=== PATIENT | male | born 1990 | race Caucasian/White ===

== ENCOUNTER 2019-09-28 15:13 | Emergency (ER) | payer MEDICAID ==
[~2019-09-28] VITALS: Ht 167.6 cm; Wt 68.0 kg
[2019-09-28 15:15] VITALS: BP 135/84
== END 2019-09-28 16:39 | disposition home or self-care (01) ==
LOC: ER 15:14
DX: K02.9 Dental caries, unspecified (principal); F17.200 Nicotine dependence, unspecified, uncomplicated; Z88.0 Allergy status to penicillin
CPT/HCPCS: 99281

== ENCOUNTER 2020-05-15 09:19 | Emergency (ER) | payer MEDICAID, OTHER ==
[~2020-05-15] VITALS: Ht 167.6 cm; Wt 70.5 kg
[2020-05-15 09:26] VITALS: BP 127/85
--- NOTE | 2020-05-15 09:52 | NUR ---
ATTEMPTED TO CALL [facility] FOR CONSULT WITH DR TORRES. HIS MAIL BOX IS FULL. CALLED CB SPOKE TO MAREK THE CN SHE WILL ATTEMPT TO GET IN TOUCH WITH HIM OTHERWISE SHE WILL ASK HIM TO CALL ER WHEN HE ARRIVES UPSTAIRS.
== END 2020-05-15 10:29 | disposition home or self-care (01) ==
LOC: ER 09:20
DX: R44.0 Auditory hallucinations (principal); Z88.0 Allergy status to penicillin
CPT/HCPCS: 99281

== ENCOUNTER 2020-06-10 10:19 | Emergency (ER) | payer MEDICAID ==
[~2020-06-10] VITALS: Ht 167.6 cm; Wt 72.5 kg
[2020-06-10 10:36] VITALS: BP 134/84
[2020-06-10] MEDS ORDERED: HYDR50CA PO (12:29)
[2020-06-10] MEDS ORDERED: hydrOXYzine 25 MG tablet PO ONE (12:30)
--- NOTE | 2020-06-10 12:57 | NUR ---
Pt left before receiving the atarax and his discharge papers. Left message on pt's voicemail regarding his Rx and d/c papers.
== END 2020-06-10 12:59 | disposition home or self-care (01) ==
LOC: ER 10:20
DX: F41.9 Anxiety disorder, unspecified (principal); F31.9 Bipolar disorder, unspecified; R44.0 Auditory hallucinations; Z88.0 Allergy status to penicillin
CPT/HCPCS: 99283

== ENCOUNTER 2020-10-15 00:24 | Emergency (ER) | payer MEDICAID ==
[~2020-10-15] VITALS: Ht 167.6 cm; Wt 75.0 kg
[~2020-10-15 00:24] MED LIST: HYDR50CA PO
[2020-10-15 00:33] VITALS: BP 139/98
--- NOTE | 2020-10-15 00:42 | NUR ---
He is beligerant.
--- NOTE | 2020-10-15 00:57 | NUR ---
at BS doing FAST exam. Pt cooperative with .
--- NOTE | 2020-10-15 00:58 | NUR ---
FAST is negative.
== END 2020-10-15 01:44 ==
LOC: ER 00:24
DX: F10.129 Alcohol abuse with intoxication, unspecified (principal); F31.9 Bipolar disorder, unspecified; Z88.0 Allergy status to penicillin; Z79.899 Other long term (current) drug therapy; Y90.9 Presence of alcohol in blood, level not specified; Z02.89 Encounter for other administrative examinations
CPT/HCPCS: 99283

== ENCOUNTER 2020-10-30 22:42 | Emergency (ER) | payer MEDICAID | END 2020-10-30 22:57 | disposition left against medical advice (07) | LOC: ER 22:43 | DX: R06.02 Shortness of breath (principal); Z53.21 Procedure and treatment not carried out due to patient leaving prior to being seen by health care provider ==

== ENCOUNTER 2021-05-15 10:00 | Emergency (ER) | payer MEDICAID ==
[~2021-05-15] VITALS: Ht 167.6 cm; Wt 70.5 kg
[2021-05-15 11:02] VITALS: BP 115/80
[2021-05-15] MEDS ORDERED: SULF1TAB49 PO (12:51)
== END 2021-05-15 13:08 | disposition home or self-care (01) ==
LOC: ER 10:00
DX: L02.416 Cutaneous abscess of left lower limb (principal); F32.9 Major depressive disorder, single episode, unspecified; Z88.0 Allergy status to penicillin
CPT/HCPCS: 99283

== ENCOUNTER 2021-05-23 05:59 | Emergency (ER) | payer MEDICAID ==
[~2021-05-23] VITALS: Ht 172.7 cm; Wt 70.5 kg
[~2021-05-23 05:59] MED LIST changes: +SULF1TAB49 PO
--- NOTE | 2021-05-23 06:16 | NUR ---
BLOOD GLUCOSE 473 BY EMS
[2021-05-23] MEDS ORDERED: NALO4SPR BOTHNARES (10:05)
[2021-05-23 10:23] VITALS: BP 101/57
== END 2021-05-23 10:27 | disposition home or self-care (01) ==
LOC: ER 05:59
DX: T40.2X1A Poisoning by other opioids, accidental (unintentional), initial encounter (principal); Z88.0 Allergy status to penicillin; Y92.89 Other specified places as the place of occurrence of the external cause
CPT/HCPCS: 99285

== ENCOUNTER 2021-10-22 01:14 | Emergency (ER) | payer MEDICAID ==
[~2021-10-22] VITALS: Ht 167.6 cm; Wt 70.9 kg
[~2021-10-22 01:14] MED LIST changes: +NALO4SPR BOTHNARES; -SULF1TAB49 PO
[2021-10-22] MEDS ORDERED: ondansetron/PF 4mg/2ml inj IV ONE (01:30)
[2021-10-22] MEDS ORDERED: normal saline 1000ML IV soln IVB ONE (01:30)
[2021-10-22 02:19] LABS: ALANINE AMINOTRANSFERASE 45 U/L (12-78); ALBUMIN 3.7 G/DL (3.4-5.0); ALBUMIN/GLOBULIN RATIO 1.1 (1.1-1.5); ALKALINE PHOSPHATASE 84 IU/L (46-116); ANION GAP 9 (8-16); ASPARTATE AMINO TRANSFERASE 40 U/L (10-37); BASOPHILS % (AUTO) 0.5 % (0-1); BILIRUBIN,TOTAL 0.2 MG/DL (0.1-1.0); BLOOD UREA NITROGEN 12 MG/DL (7-18); BUN/CREATININE RATIO 11.5 (5.4-32.0); CALCIUM 8.4 MG/DL (8.5-10.1); CHLORIDE 104 MMOL/L (99-107); CREATININE 1.04 MG/DL (0.60-1.10); EOSINOPHILS # (AUTO) 0.3 X10'3 (0-0.9); ETHANOL 0.119 GM/DL (0.0-0.010); GLUCOSE 100 MG/DL (70-104); HEMATOCRIT 44.7 % (42.0-52.0); HEMOGLOBIN 15.4 g/dl (14.0-17.9); LYMPHOCYTES # (AUTO) 2.5 X10'3 (1.1-4.8); LYMPHOCYTES % (AUTO) 35.7 % (21-51); MEAN CORPUSCULAR HEMOGLOBIN 32.5 PG (27.0-31.0); MEAN CORPUSCULAR HGB CONC 34.5 g/dL (33.0-36.5); MEAN CORPUSCULAR VOLUME 94.2 FL (78-98); MONOCYTES # (AUTO) 0.8 X10'3 (0-0.9); MONOCYTES % (AUTO) 11.5 % (2-12); NEUTROPHILS # (AUTO) 3.4 X10'3 (1.8-7.7); NEUTROPHILS % (AUTO) 48.3 % (42-75); PLATELET COUNT 238 X10'3 (140-440); POTASSIUM 3.4 MMOL/L (3.5-5.1); RED BLOOD COUNT 4.74 X10'6 (4.70-6.10); RED CELL DISTRIBUTION WIDTH 13.9 % (11.5-14.5); SODIUM 142 MMOL/L (135-145); TOTAL CARBON DIOXIDE 29.2 MMOL/L (24-32); TOTAL PROTEIN 7.2 G/DL (6.4-8.2); WHITE BLOOD COUNT 6.9 X10'3 (4.5-11.0); eGFR 83 ML/MIN
--- NOTE | 2021-10-22 07:19 | NUR ---
patient up to the bathroom,able to ambulate without difficulty.
[2021-10-22 07:44] VITALS: BP 119/78
== END 2021-10-22 07:46 | disposition home or self-care (01) ==
LOC: ER 01:14
DX: T40.411A Poisoning by fentanyl or fentanyl analogs, accidental (unintentional), initial encounter (principal); R40.0 Somnolence; F31.9 Bipolar disorder, unspecified; F15.90 Other stimulant use, unspecified, uncomplicated; F17.200 Nicotine dependence, unspecified, uncomplicated; Z59.00 Homelessness unspecified; Z56.0 Unemployment, unspecified; Z88.0 Allergy status to penicillin; Y92.89 Other specified places as the place of occurrence of the external cause
CPT/HCPCS: 36415; 80053; 80320; 85025; 93005; 96374; 99284; J2405; J7030; 99283

== ENCOUNTER 2021-12-02 21:38 | Emergency (ER) | payer MEDICAID ==
[~2021-12-02] VITALS: Ht 172.7 cm; Wt 72.7 kg
[2021-12-03 00:09] VITALS: BP 107/62
[2021-12-03] MEDS ORDERED: NALO4SPR BOTHNARES (00:41)
== END 2021-12-03 01:19 | disposition home or self-care (01) ==
LOC: ER 21:38
DX: T40.411A Poisoning by fentanyl or fentanyl analogs, accidental (unintentional), initial encounter (principal); R41.82 Altered mental status, unspecified; F31.9 Bipolar disorder, unspecified; F12.10 Cannabis abuse, uncomplicated; F15.10 Other stimulant abuse, uncomplicated; F11.10 Opioid abuse, uncomplicated; Z59.00 Homelessness unspecified; Z88.0 Allergy status to penicillin; Z79.899 Other long term (current) drug therapy; Y92.89 Other specified places as the place of occurrence of the external cause
CPT/HCPCS: 99283

== ENCOUNTER 2022-02-24 16:22 | Emergency (ER) | payer MEDICAID ==
[~2022-02-24] VITALS: Ht 167.6 cm; Wt 75.0 kg
[2022-02-24] MEDS ORDERED: normal saline 1000ML IV soln IVB ONE (16:45)
[2022-02-24 17:01] LABS: BASOPHILS % (AUTO) 0.6 % (0-1); EOSINOPHILS # (AUTO) 0.4 X10'3 (0-0.9); EOSINOPHILS % (AUTO) 4.7 % (0-6); HEMATOCRIT 43.9 % (42.0-52.0); HEMOGLOBIN 14.7 g/dl (14.0-17.9); LYMPHOCYTES # (AUTO) 2.3 X10'3 (1.1-4.8); LYMPHOCYTES % (AUTO) 29.9 % (21-51); MEAN CORPUSCULAR HEMOGLOBIN 30.5 PG (27.0-31.0); MEAN CORPUSCULAR HGB CONC 33.6 g/dL (33.0-36.5); MEAN PLATELET VOLUME 7.7 FL (7.4-10.4); MONOCYTES # (AUTO) 0.8 X10'3 (0-0.9); MONOCYTES % (AUTO) 10.6 % (2-12); NEUTROPHILS # (AUTO) 4.2 X10'3 (1.8-7.7); NEUTROPHILS % (AUTO) 54.2 % (42-75); PLATELET COUNT 296 X10'3 (140-440); RED BLOOD COUNT 4.82 X10'6 (4.70-6.10); RED CELL DISTRIBUTION WIDTH 13.6 % (11.5-14.5); WHITE BLOOD COUNT 7.8 X10'3 (4.5-11.0)
[2022-02-24 17:16] LABS: ALANINE AMINOTRANSFERASE 33 U/L (12-78); ALBUMIN 3.4 G/DL (3.4-5.0); ALBUMIN/GLOBULIN RATIO 0.9 (1.1-1.5); ALKALINE PHOSPHATASE 85 IU/L (46-116); ANION GAP 10 (8-16); ASPARTATE AMINO TRANSFERASE 41 U/L (10-37); BILIRUBIN,TOTAL 0.3 MG/DL (0.1-1.0); BLOOD UREA NITROGEN 6 MG/DL (7-18); BUN/CREATININE RATIO 6.4 (5.4-32.0); CALCIUM 9.2 MG/DL (8.5-10.1); CHLORIDE 104 MMOL/L (99-107); CREATININE 0.94 MG/DL (0.60-1.10); ETHANOL 0.041 GM/DL (0.0-0.010); GLUCOSE 90 MG/DL (70-104); POTASSIUM 3.7 MMOL/L (3.5-5.1); SODIUM 140 MMOL/L (135-145); TOTAL CARBON DIOXIDE 26.4 MMOL/L (24-32); TOTAL PROTEIN 7.4 G/DL (6.4-8.2); eGFR > 90 ML/MIN
[2022-02-24 18:30] LABS: URINE AMPHETAMINE SCREEN POSITIVE (Neg); URINE BARBITUATE SCREEN NEGATIVE (Neg); URINE BENZODIAZEPINES SCREEN NEGATIVE (Neg); URINE CANNABINOID SCREEN POSITIVE (Neg); URINE COCAINE SCREEN NEGATIVE (Neg); URINE METHADONE SCREEN NEGATIVE (Neg); URINE OPIATE SCREEN NEGATIVE (Neg); URINE PHENCYCLIDINE SCREEN NEGATIVE (Neg)
[2022-02-24 18:34] VITALS: BP 124/87
== END 2022-02-24 18:36 | disposition left against medical advice (07) ==
LOC: ER 16:22
DX: T40.411A Poisoning by fentanyl or fentanyl analogs, accidental (unintentional), initial encounter (principal); R41.82 Altered mental status, unspecified; Y92.89 Other specified places as the place of occurrence of the external cause; F41.9 Anxiety disorder, unspecified; F31.9 Bipolar disorder, unspecified; F17.200 Nicotine dependence, unspecified, uncomplicated; F15.10 Other stimulant abuse, uncomplicated; F11.10 Opioid abuse, uncomplicated; Z88.0 Allergy status to penicillin; Z59.00 Homelessness unspecified; Z56.0 Unemployment, unspecified
CPT/HCPCS: 36415; 71045; 80053; 80305; 80320; 85025; 99284; J7030

== ENCOUNTER 2022-08-01 18:01 | Emergency (ER) | payer MEDICAID ==
[~2022-08-01] VITALS: Ht 167.6 cm; Wt 71.0 kg
[2022-08-01 21:51] VITALS: BP 120/75
== END 2022-08-01 21:52 | disposition home or self-care (01) ==
LOC: ER 18:02
DX: T40.411A Poisoning by fentanyl or fentanyl analogs, accidental (unintentional), initial encounter (principal); R41.82 Altered mental status, unspecified; F10.920 Alcohol use, unspecified with intoxication, uncomplicated; F31.9 Bipolar disorder, unspecified; F15.10 Other stimulant abuse, uncomplicated; Z88.0 Allergy status to penicillin; Z79.899 Other long term (current) drug therapy
CPT/HCPCS: 93005; 99283

== ENCOUNTER 2022-08-15 20:59 | Emergency (ER) | payer MEDICAID ==
[~2022-08-15] VITALS: Ht 167.6 cm; Wt 71.4 kg
[2022-08-15 21:39] LABS: BASOPHILS # (AUTO) 0.1 X10'3 (0-0.2); BASOPHILS % (AUTO) 0.4 % (0-1); EOSINOPHILS # (AUTO) 0.3 X10'3 (0-0.9); EOSINOPHILS % (AUTO) 2.1 % (0-6); HEMATOCRIT 46.3 % (42.0-52.0); HEMOGLOBIN 15.4 g/dl (14.0-17.9); LYMPHOCYTES # (AUTO) 3.9 X10'3 (1.1-4.8); LYMPHOCYTES % (AUTO) 27.5 % (21-51); MEAN CORPUSCULAR HEMOGLOBIN 30.5 PG (27.0-31.0); MEAN CORPUSCULAR HGB CONC 33.4 g/dL (33.0-36.5); MEAN CORPUSCULAR VOLUME 91.5 FL (78-98); MEAN PLATELET VOLUME 7.9 FL (7.4-10.4); MONOCYTES # (AUTO) 1.3 X10'3 (0-0.9); NEUTROPHILS # (AUTO) 8.5 X10'3 (1.8-7.7); PLATELET COUNT 240 X10'3 (140-440); RED BLOOD COUNT 5.06 X10'6 (4.70-6.10); RED CELL DISTRIBUTION WIDTH 13.6 % (11.5-14.5)
[2022-08-15 21:51] LABS: ALANINE AMINOTRANSFERASE 32 U/L (12-78); ALBUMIN 4.5 G/DL (3.4-5.0); ALBUMIN/GLOBULIN RATIO 1.2 (1.1-1.5); ALKALINE PHOSPHATASE 82 IU/L (46-116); ANION GAP 5 (8-16); ASPARTATE AMINO TRANSFERASE 26 U/L (10-37); BILIRUBIN,TOTAL 0.5 MG/DL (0.1-1.0); BLOOD UREA NITROGEN 11 MG/DL (7-18); BUN/CREATININE RATIO 11.3 (5.4-32.0); CALCIUM 10.1 MG/DL (8.5-10.1); CHLORIDE 101 MMOL/L (99-107); CREATININE 0.97 MG/DL (0.60-1.10); ETHANOL < 0.010 GM/DL (0.0-0.010); GLUCOSE 94 MG/DL (70-104); POTASSIUM 3.8 MMOL/L (3.5-5.1); SODIUM 137 MMOL/L (135-145); TOTAL CARBON DIOXIDE 30.9 MMOL/L (24-32); TOTAL PROTEIN 8.2 G/DL (6.4-8.2); eGFR 90 ML/MIN
[2022-08-15] MEDS ORDERED: normal saline 1000ML IV soln IVB ONE (22:25)
[2022-08-15 22:46] LABS: URINE AMPHETAMINE SCREEN POSITIVE (Neg); URINE BARBITUATE SCREEN NEGATIVE (Neg); URINE BENZODIAZEPINES SCREEN NEGATIVE (Neg); URINE CANNABINOID SCREEN POSITIVE (Neg); URINE COCAINE SCREEN NEGATIVE (Neg); URINE METHADONE SCREEN NEGATIVE (Neg); URINE OPIATE SCREEN NEGATIVE (Neg); URINE PHENCYCLIDINE SCREEN NEGATIVE (Neg)
--- NOTE | 2022-08-16 01:14 | NUR ---
PT IS ABLE TO AWAKE, IS ALERT AND ORIENTED X4., STATES ITS COLD OUTSIDE AND HE DOESNT WANT TO BE THROWN OUT IN THE COLD, PT PROVIDED SWEATS FOR EXTRA WARMTH, VITALS WNL. STABLE AND READY FOR D/C
[2022-08-16 01:20] VITALS: BP 124/68
== END 2022-08-16 01:22 | disposition home or self-care (01) ==
LOC: ER 21:00
DX: T40.411A Poisoning by fentanyl or fentanyl analogs, accidental (unintentional), initial encounter (principal); T40.601A Poisoning by unspecified narcotics, accidental (unintentional), initial encounter; F31.9 Bipolar disorder, unspecified; F17.200 Nicotine dependence, unspecified, uncomplicated; F15.20 Other stimulant dependence, uncomplicated; F19.10 Other psychoactive substance abuse, uncomplicated; Z88.0 Allergy status to penicillin; Z59.00 Homelessness unspecified; Z56.0 Unemployment, unspecified; Y92.89 Other specified places as the place of occurrence of the external cause
CPT/HCPCS: 36415; 71045; 80053; 80305; 80320; 85025; 93005; 96360; 96361; 99285; J7030